=== PATIENT | female | born 1960 | race Two or more races ===

== ENCOUNTER 2018-02-06 16:39 | Emergency (ER) | payer SELFPAY ==
[~2018-02-06] VITALS: Ht 157.5 cm; Wt 103.0 kg
--- NOTE | 2018-02-06 17:14 | PHYS DOC ---
Adult General Chief Complaint Chief Complaint: NAUSEA/VOMITING/DIARRHA HPI HPI Patient is a 57 year old female with history of diabetes type 2 who presents today complaining of nausea for 3 days. Patient states she doesn't feel well. Patient states she had dysuria for 2 days, patient denies any dysuria today. Patient denies any vomiting. Denies any diarrhea. Denies any chest pain or shortness of breath. She states she does not know how high her blood was has been lately. Patient is also complaining of right lower quadrant abdominal pain that she states has been going on for 6 months. Patient is Bulgarian-speaking and interpretation is provided by family/friend Review of Systems Review of Systems Constitutional: Reports not feeling well. Denies fever or chills [] Eyes: Denies change in visual acuity, redness, or eye pain [] HENT: Denies nasal congestion or sore throat [] Respiratory: Denies cough or shortness of breath [] Cardiovascular: No additional information not addressed in HPI [] GI: Reports nausea, denies vomiting, bloody stools or diarrhea [] : Denies dysuria or hematuria [] Musculoskeletal: Denies back pain or joint pain [] Integument: Denies rash or skin lesions [] Neurologic: Denies headache, focal weakness or sensory changes [] All other systems were reviewed and found to be within normal limits, except as documented in this note. Current Medications Current Medications Current Medications Medications (Trade) Dose Ordered Sig/William Start Time Stop Time Status Last Admin Dose Admin Acetaminophen (Tylenol) 1,000 mg 1X ONCE 02/06/18 17:45 02/06/18 17:46 DC 02/06/18 18:01 1,000 MG Ceftriaxone Sodium 50 ml @ 100 mls/hr 1X ONCE 02/06/18 19:15 02/06/18 19:44 DC 02/06/18 19:35 100 MLS/HR Info (CONTRAST GIVEN -- Rx MONITORING) 1 each PRN DAILY PRN 02/06/18 18:00 02/08/18 17:59 Iohexol (Omnipaque 300 Mg/ml) 100 ml STK-MED ONCE 02/06/18 17:57 02/06/18 17:58 DC Magnesium Sulfate/ Dextrose 100 ml @ 100 mls/hr 1X ONCE 02/06/18 19:45 02/06/18 20:44 DC 02/06/18 19:45 100 MLS/HR Ondansetron HCl (Zofran) 4 mg 1X ONCE 02/06/18 17:15 02/06/18 17:25 DC 02/06/18 17:22 4 MG Pantoprazole Sodium (PROTONIX VIAL for IV PUSH) 40 mg 1X ONCE 02/06/18 17:15 02/06/18 17:25 DC 02/06/18 17:22 40 MG Sodium Chloride 1,000 ml @ 1,000 mls/hr 1X ONCE 02/06/18 17:45 02/06/18 18:44 DC 02/06/18 17:45 1,000 MLS/HR Allergies Allergies Allergies Coded Allergies Type Severity Reaction Last Updated Verified No Known Drug Allergies 02/06/18 No Physical Exam Physical Exam Constitutional: Well developed, well nourished, no acute distress, non-toxic appearance. [] HENT: Normocephalic, atraumatic, bilateral external ears normal, oropharynx moist, no oral exudates, nose normal. [] Eyes: PERRLA, EOMI, conjunctiva normal, no discharge. [] Neck: Normal range of motion, no tenderness, supple, no stridor. [] Cardiovascular:Heart rate regular rhythm, no murmur [] Lungs & Thorax: Bilateral breath sounds clear to auscultation [] Abdomen: Rounded abdomen. Bowel sounds normal, soft, no tenderness, no masses, no pulsatile masses. [] Skin: Warm, dry, no erythema, no rash. [] Back: No tenderness, no CVA tenderness. [] Extremities: No tenderness, no cyanosis, no clubbing, ROM intact, no edema. [] Neurologic: Alert and oriented X 3, normal motor function, normal sensory function, no focal deficits noted. [] Psychologic: Affect normal, judgement normal, mood normal. [] Current Patient Data Vital Signs Vital Signs Date Time Temp Pulse Resp B/P (MAP) Pulse Ox O2 Delivery O2 Flow Rate FiO2 02/06/18 20:33 98.2 78 18 132/76 (94) 98 Room Air 98.2 Lab Values Laboratory Tests Test 02/06/18 17:05 02/06/18 17:35 02/06/18 17:39 02/06/18 18:05 White Blood Count 15.1 x10^3/uL (4.0-11.0) H Red Blood Count 4.72 x10^6/uL (3.50-5.40) Hemoglobin 13.9 g/dL (12.0-15.5) Hematocrit 40.9 % (36.0-47.0) Mean Corpuscular Volume 87 fL (79-100) Mean Corpuscular Hemoglobin 29 pg (25-35) Mean Corpuscular Hemoglobin Concent 34 g/dL (31-37) Red Cell Distribution Width 13.9 % (11.5-14.5) Platelet Count 332 x10^3/uL (140-400) Neutrophils (%) (Auto) 90 % (31-73) H Lymphocytes (%) (Auto) 6 % (24-48) L Monocytes (%) (Auto) 2 % (0-9) Eosinophils (%) (Auto) 1 % (0-3) Basophils (%) (Auto) 1 % (0-3) Neutrophils # (Auto) 13.7 x10^3uL (1.8-7.7) H Lymphocytes # (Auto) 0.9 x10^3/uL (1.0-4.8) L Monocytes # (Auto) 0.4 x10^3/uL (0.0-1.1) Eosinophils # (Auto) 0.1 x10^3/uL (0.0-0.7) Basophils # (Auto) 0.1 x10^3/uL (0.0-0.2) Segmented Neutrophils % 83 % (35-66) H Band Neutrophils % 7 % (0-9) Lymphocytes % 6 % (24-48) L Monocytes % 4 % (0-10) Toxic Granulation Slight Toxic Vacuolation Slight Platelet Estimate Adequate (ADEQUATE) Sodium Level 139 mmol/L (136-145) Potassium Level 3.9 mmol/L (3.5-5.1) Chloride Level 100 mmol/L (98-107) Carbon Dioxide Level 24 mmol/L (21-32) Anion Gap 15 (6-14) H Blood Urea Nitrogen 10 mg/dL (7-20) Creatinine 1.0 mg/dL (0.6-1.0) Estimated GFR (Cockcroft-Gault) 57.6 BUN/Creatinine Ratio 10 (6-20) Glucose Level 280 mg/dL (70-99) H Calcium Level 9.3 mg/dL (8.5-10.1) Magnesium Level 1.5 mg/dL (1.8-2.4) L Total Bilirubin 1.0 mg/dL (0.2-1.0) Aspartate Amino Transferase (AST) 12 U/L (15-37) L Alanine Aminotransferase (ALT) 22 U/L (14-59) Alkaline Phosphatase 186 U/L (46-116) H Troponin I Quantitative < 0.017 ng/mL (0.000-0.055) SQ-[id number]-Type Natriuretic Peptide 214 pg/mL (0-124) H Total Protein 8.3 g/dL (6.4-8.2) H Albumin 3.1 g/dL (3.4-5.0) L Albumin/Globulin Ratio 0.6 (1.0-1.7) L Lipase 246 U/L (73-393) Procalcitonin 0.26 ng/mL (0.00-0.10) H Thyroid Stimulating Hormone (TSH) 1.642 uIU/mL (0.358-3.74) Lactic Acid Level 3.4 mmol/L (0.4-2.0) H Influenza Type A Antigen Negative (NEGATIVE) Influenza Type B Antigen Negative (NEGATIVE) Urine Collection Type Unknown Urine Color Christa Urine Clarity Turbid Urine pH 5.5 Urine Specific Wright 1.025 Urine Protein >=300 mg/dL (NEG-TRACE) Urine Glucose (UA) 250 mg/dL (NEG) Urine Ketones (Stick) Trace mg/dL (NEG) Urine Blood Moderate (NEG) Urine Nitrite Negative (NEG) Urine Bilirubin Small (NEG) Urine Urobilinogen Dipstick 1.0 mg/dL (0.2 mg/dL) Urine Leukocyte Esterase Large (NEG) Urine RBC 6-10 /HPF (0-2) Urine WBC Tntc /HPF (0-4) Urine Squamous Epithelial Cells Few /LPF Urine Bacteria Many /HPF (0-FEW) Urine Hyaline Casts Few /HPF Urine Mucus Mod /LPF Urine Opiates Screen Neg (NEG) Urine Methadone Screen Neg (NEG) Urine Barbiturates Neg (NEG) Urine Phencyclidine Screen Neg (NEG) Urine Amphetamine/Methamphetamine Neg (NEG) Urine Benzodiazepines Screen Neg (NEG) Urine Cocaine Screen Neg (NEG) Urine Cannabinoids Screen Neg (NEG) Urine Ethyl Alcohol Neg (NEG) Laboratory Tests 10/24/18 17:05 Laboratory Tests 02/06/18 17:05 EKG EKG [] Radiology/Procedures Radiology/Procedures [] Impressions: CT of the abdomen and pelvis demonstrate no acute process. Course & Med Decision Making Course & Med Decision Making Pertinent Labs and Imaging studies reviewed. (See chart for details) This is a 57-year-old female patient with history of diabetes type 2 presenting today complaining of nausea, not feeling well and dysuria for 3 days and RLQ pain for 6 months. RN informed me later patient has a Temp 101.2 HR 94 two liters of IV fluids were ordered. Awaiting labs including Lactic, influenza CT. Care tx to Dr. Kalpana Ibarra Disclaimer Fred Disclaimer This electronic medical record was generated, in whole or in part, using a voice recognition dictation system. Departure Departure Impression: Primary Impression: Fever Additional Impression: Urinary tract infection Disposition: HOME, SELF-CARE Condition: STABLE Patient Instructions: Urinary Tract Infection Additional Instructions: Take prescribed medication as directed and follow-up with your primary care provider in the next few days. Scripts Phenazopyridine Hcl (PYRIDIUM) 100 Mg Tablet 100 MG PO TID PRN for URINARY PAIN, #12 TAB Prov: BASIL RAMÍREZ Jr. DO 02/06/18 Sulfamethoxazole/Trimethoprim (BACTRIM DS TABLET) 1 Each Tablet 1 TAB PO BID, #20 TAB Prov: BASIL RAMÍREZ Jr. DO 02/06/18 Problem Qualifiers Primary Impression: Fever Fever type: unspecified Qualified Codes: R50.9 - Fever, unspecified Additional Impression: Urinary tract infection Urinary tract infection type: site unspecified Hematuria presence: without hematuria Qualified Codes: N39.0 - Urinary tract infection, site not specified ZECHARIAH WILSON SCHEDULE CLERK Feb 06, 2018 17:14 BASIL RAMÍREZ Jr. DO Feb 06, 2018 21:50
[2018-02-06] MEDS ORDERED: ONDANSETRON PF 4 MG/2 ML VIAL. IV ONE (17:15)
[2018-02-06] MEDS ORDERED: PANTOPRAZOLE IV PUSH 40 MG VIAL. IVP ONE (17:15)
[2018-02-06] MEDS ORDERED: IV NORMAL SALINE 1000ML BAG 1,000 ML IV ONE ×2 (17:15→17:45)
[2018-02-06 17:16] LABS: BASO # 0.1 x10^3/uL (0.0-0.2); BASO % 1 % (0-3); EOS # 0.1 x10^3/uL (0.0-0.7); EOS % 1 % (0-3); HEMATOCRIT 40.9 % (36.0-47.0); HEMOGLOBIN 13.9 g/dL (12.0-15.5); LYMPH # 0.9 x10^3/uL (1.0-4.8); LYMPH % 6 % (24-48); MEAN CORPUSCULAR HEMOGLOBIN 29 pg (25-35); MEAN CORPUSCULAR HGB CONC 34 g/dL (31-37); MEAN CORPUSCULAR VOLUME 87 fL (79-100); MONO # 0.4 x10^3/uL (0.0-1.1); MONO % 2 % (0-9); NEUT # 13.7 x10^3uL (1.8-7.7); NEUT % 90 % (31-73); PLATELET COUNT 332 x10^3/uL (140-400); RED BLOOD COUNT 4.72 x10^6/uL (3.50-5.40); RED CELL DISTRIBUTION WIDTH 13.9 % (11.5-14.5); WHITE BLOOD COUNT 15.1 x10^3/uL (4.0-11.0)
[2018-02-06 17:26] LABS: CALCIUM 9.3 mg/dL (8.5-10.1); GFR 57.6; POTASSIUM 3.9 mmol/L (3.5-5.1)
[2018-02-06 17:32] LABS: ALBUMIN 3.1 g/dL (3.4-5.0); ALBUMIN/GLOBULIN RATIO 0.6 (1.0-1.7); MAGNESIUM 1.5 mg/dL (1.8-2.4); TOTAL PROTEIN 8.3 g/dL (6.4-8.2)
[2018-02-06] MEDS ORDERED: ACETAMINOPHEN 500 MG TABLET PO ONE (17:45)
[2018-02-06] MEDS ORDERED: IOHEXOL 300 MG/ML 100ML VIAL. ONE (17:57)
[2018-02-06] MEDS ORDERED: IOHEXOL 300 MG/ML 100ML VIAL. IV ONE (18:00)
[2018-02-06] MEDS ORDERED: CONTRAST GIVEN. MC PRN (18:00)
--- NOTE | 2018-02-06 18:03 | RAD ---
Indication:Weak and fatigue with N/V for 4 days TECHNIQUE:Portable AP chest X-ray COMPARISON:None FINDINGS: Heart is normal in size. There is mild prominence of bronchovascular markings. No focal consolidation. No pneumothorax or pleural effusion. Visualized bony thorax within normal limits. IMPRESSION: Differential diagnoses includes pulmonary vascular congestion with very early interstitial pulmonary edema or atypical/viral infection/bronchitis. Electronically signed by: Scott Schuler DO (02/06/2018 6:00 PM) [facility]
[2018-02-06 18:11] LABS: % BANDS 7 % (0-9); % LYMPHS 6 % (24-48); % MONOS 4 % (0-10); % SEGS 83 % (35-66); PLT ESTIMATE ADEQUATE (ADEQUATE); TOXIC GRANULATION SLIGHT; TOXIC VACUOLATION SLIGHT
[2018-02-06 18:20] LABS: INFLUENZA A PATIENT NEGATIVE (NEGATIVE); INFLUENZA B PATIENT NEGATIVE (NEGATIVE)
--- NOTE | 2018-02-06 18:20 | RAD ---
PQRS Compliance statement: One or more of the following individualized dose reduction techniques were utilized for this examination: 1. Automated exposure control. 2. Adjustment of the mA and/or kV according to patient size. 3. Use of iterative reconstruction technique. Indication:Nausea vomiting diarrhea, ABD PAIN X 4 DAYS TECHNIQUE: CT abdomen and pelvis with IV contrast with multiplanar reformats. COMPARISON: None FINDINGS: Heart is normal in size. No pericardial or pleural effusion. Clear lung bases. Liver is moderately enlarged measuring 27 cm in longest dimension. No focal hepatic lesion. Spleen is not enlarged and show no focal lesion. Gallstone noted. No pericholecystic fluid. Pancreas within normal limits without peripancreatic inflammatory changes or focal pancreatic lesion. Adrenal glands show no focal mass. No nephrolithiasis or hydronephrosis. No suspicious renal lesion. No enlarged retroperitoneal or pelvic adenopathy. Large midline ventral abdominal wall hernia is seen containing stomach, loops of small bowel, colon, omentum and mesentery. The neck of the hernia approximately measures 14 cm. The hernia sac measures 30.0 x 13.0 x 24 cm. there is no evidence of bowel obstruction. Anteverted uterus. Urinary bladder demonstrates no radiopaque stones. No pneumoperitoneum. No suspicious bony lesion. IMPRESSION: 1. Large ventral abdominal wall hernia containing near complete entire bowel, partial stomach, large amount of mesentery and omentum as described above. 2. Moderate hepatomegaly. 3. Cholelithiasis without imaging evidence of acute cholecystitis. Electronically signed by: Scott Schuler DO (02/06/2018 6:16 PM) [facility]
[2018-02-06 18:22] LABS: BILIRUBIN,URINE SMALL (NEG); CLARITY,URINE TURBID; COLOR,URINE AMBER; NITRITE,URINE NEGATIVE (NEG); PH,URINE 5.5; PROTEIN,URINE >=300 mg/dL (NEG-TRACE)
[2018-02-06 18:30] LABS: AMPHETAMINE/METHAMPHETAMINE NEG (NEG); BACTERIA,URINE MANY /HPF (0-FEW); BARBITURATES NEG (NEG); BENZODIAZEPINES NEG (NEG); CANNABINOIDS NEG (NEG); COCAINE NEG (NEG); HYALINE CASTS, URINE FEW /HPF; METHADONE NEG (NEG); OPIATES NEG (NEG); PHENCYCLIDINE NEG (NEG); SQUAMOUS EPITHELIAL CELL,UR FEW /LPF; WBC,URINE TNTC /HPF (0-4)
[2018-02-06] MEDS ORDERED: MAGNESIUM SULFATE 1GM 100 ML IV ONE (19:45)
[2018-02-06] MEDS ORDERED: PHEN100T82 PO (21:49)
[2018-02-06] MEDS ORDERED: SULF1TAB24 PO (21:49)
[2018-02-06 23:14] VITALS: BP 109/52
== END 2018-02-06 23:15 | disposition home or self-care (01) ==
LOC: ER 16:39
DX: N39.0 Urinary tract infection, site not specified (principal); R10.31 Right lower quadrant pain; R11.0 Nausea; R50.9 Fever, unspecified; E11.9 Type 2 diabetes mellitus without complications
CPT/HCPCS: 36415; 71045; 74177; 80053; 80307; 81001; 83605; 83690; 83735; 83880; 84145; 84443; 84484; 85007; 85025; 87040; 87086; 87804; 96365; 96368; 96375; 99285; C9113; J0690; J2405; J3475; J7030; Q9967; 87186; 96361; G0479